=== PATIENT | female | born 1940 | race Caucasian/White ===

== ENCOUNTER 2019-02-19 06:31 | Day surgery (SDC) | payer MEDICARE, BC ==
[~2019-02-19] VITALS: Ht 157.5 cm; Wt 45.5 kg
[~2019-02-19 06:31] MED LIST: ALPR.5 PO; AMLO5; ASPI81CH; ASPI81EC PO; ATOR20 PO; AZIT500 PO; Aspir 8181 MG PO; CALCAVITD PO; CHONDROITIN PO; CIPR500 PO; CONESTTC VAG; CYAN500 PO; Diovan320 MG; ERGO400 PO; ESCITALOPRAM OXA5 MG PO; ESOM20 PO; EZET10 PO; FAMO20; FISH1000 PO; GLUC500 PO; GLUCOSAMINE PO; HYDACE5 PO; HYDCHL12.5; HYDCHL25 PO; Hair, Skin & N1 EACH PO; LEVSOD25; LEVSOD50 PO; LEVSOD75 PO; LISHYD1012 PO; LISI10; LORA10 PO; METO25ER; METO50ER PO; METR500 PO; MIRALAX17 GM; MSM; MSM PO; MSM500 MG PO; MULVITB&C PO; NEBI10 PO; OMEG1CAP30 PO; PERSER VISION; POTCHL20ER PO; RABE20 PO; RILUZOLE50 MG; SERT25; Triamcinolone A15 G3 TOP; VITAMENS; VITB100 PO; VITNEPH PO
--- NOTE | 2019-02-19 07:25 | NUR ---
02/19/19 0724 Camille Victoria 1 TRY HAND RIGHT VALVE IN WAY 2 TRY RIGHT WRIST GOOD
== END 2019-02-19 09:05 | disposition home or self-care (01) ==
LOC: ORSCSDS 06:31
PROVIDERS: Student in an Organized Health Care Education/Training Program
PROC: 0DB98ZX Excision of Duodenum, Via Natural or Artificial Opening Endoscopic, Diagnostic (ICD-10-PCS; principal; 2019-02-19 08:00)
PROC: 0DB58ZX Excision of Esophagus, Via Natural or Artificial Opening Endoscopic, Diagnostic (ICD-10-PCS; principal; 2019-02-19 08:00)
PROC: 0DB68ZX Excision of Stomach, Via Natural or Artificial Opening Endoscopic, Diagnostic (ICD-10-PCS; principal; 2019-02-19 08:00)
DX: R10.13 Epigastric pain (principal); K31.7 Polyp of stomach and duodenum; R13.14 Dysphagia, pharyngoesophageal phase; K29.70 Gastritis, unspecified, without bleeding; I10 Essential (primary) hypertension; K21.9 Gastro-esophageal reflux disease without esophagitis; I48.91 Unspecified atrial fibrillation; E78.5 Hyperlipidemia, unspecified; G12.21 Amyotrophic lateral sclerosis; Z86.73 Personal history of transient ischemic attack (TIA), and cerebral infarction without residual deficits; E03.9 Hypothyroidism, unspecified; F17.210 Nicotine dependence, cigarettes, uncomplicated; Z79.899 Other long term (current) drug therapy
CPT/HCPCS: 88305; 88342; J0330; J0461; J2405; J2704; J7120

== ENCOUNTER 2019-08-18 11:55 | Emergency (ER) | payer MEDICARE, BC ==
[~2019-08-18] VITALS: Ht 157.5 cm; Wt 43.1 kg
[~2019-08-18 11:55] MED LIST changes: +METO25 PO; -METO25ER
[2019-08-18] MEDS ORDERED: GLYC2 PO (12:21)
[2019-08-18] MEDS ORDERED: ULTRA-LIGHT RO1 EACH MC (13:34)
[2019-08-18] MEDS ORDERED: ACETAMINOPHEN500 MG PO (13:34)
== END 2019-08-18 13:58 | disposition home or self-care (01) ==
LOC: ER 11:55
DX: S22.31XA Fracture of one rib, right side, initial encounter for closed fracture (principal); S27.0XXA Traumatic pneumothorax, initial encounter; S40.211A Abrasion of right shoulder, initial encounter; S00.211A Abrasion of right eyelid and periocular area, initial encounter; I10 Essential (primary) hypertension; E03.9 Hypothyroidism, unspecified; E78.5 Hyperlipidemia, unspecified; F41.9 Anxiety disorder, unspecified; F17.210 Nicotine dependence, cigarettes, uncomplicated; Z23 Encounter for immunization; Z88.8 Allergy status to other drugs, medicaments and biological substances; Z88.2 Allergy status to sulfonamides; Z88.0 Allergy status to penicillin; Z91.013 Allergy to seafood; Z79.899 Other long term (current) drug therapy; Z79.82 Long term (current) use of aspirin; W18.30XA Fall on same level, unspecified, initial encounter
CPT/HCPCS: 73030; 90471; 90714; 99283-25